=== PATIENT | female | born 1980 | race Caucasian/White ===

== ENCOUNTER 2022-01-01 14:05 | Emergency (ER) | payer BC ==
[~2022-01-01] VITALS: Ht 167.6 cm; Wt 65.9 kg
[2022-01-01 14:14] VITALS: BP 121/62
[2022-01-01] MEDS ORDERED: ondansetron 4mg rapidly disintigrating tab PO ONE (14:55)
[2022-01-01] MEDS ORDERED: ONDA4TAB12 PO (16:20)
== END 2022-01-01 16:10 | disposition home or self-care (01) ==
LOC: ER 14:06
DX: U07.1 COVID-19 (principal); R11.2 Nausea with vomiting, unspecified; Z98.890 Other specified postprocedural states
CPT/HCPCS: 87502; 87503; 87635; 99283; C9803